=== PATIENT | male | born 1980 | race Caucasian/White ===

== ENCOUNTER 2017-09-17 21:19 | Emergency (ER) | payer MEDICARE, MEDICAID ==
[~2017-09-17] VITALS: Ht 195.6 cm; Wt 135.4 kg
[~2017-09-17 21:19] MED LIST: BECL0.07 INH; BUSP10 PO; CLAR10TA7 PO; COMBAER INH; DUONSOL2 NEB; MOME17I; NEXI20CA PO; ZAFI1TAB2 PO; ZYPR5TAB PO
[2017-09-17 21:26] VITALS: BP 157/88; PULSE 101; RESP 18; TEMP 97.6; O2SAT 99
--- NOTE | 2017-09-17 21:54 | RADRPT ---
EXAM DATE/TIME: 09/17/2017 21:43 [place] COMPARISON: No previous studies available for comparison. INDICATIONS : Chest pain, shortness of breath. MEDICAL HISTORY : None. SURGICAL HISTORY : None. ENCOUNTER: Initial ACUITY: 1 month PAIN SCORE: 3/10 LOCATION: Left chest FINDINGS: PA and lateral views of the chest demonstrate the lungs to be symmetrically aerated without evidence of mass, infiltrate or effusion. The cardiomediastinal contours are unremarkable. Osseous structure s are intact. CONCLUSION: No acute disease. Christiano Cee MD on September 17, 2017 at 21:52 Board Certified Radiologist. This report was verified electronically.
[2017-09-17 22:33] LABS: AUTOMATED NEUTROPHIL # 7.7 TH/MM3 (1.8-7.7); BASOPHIL # 0.1 TH/MM3 (0-0.2); BASOPHIL % 0.5 % (0.0-2.0); EOSINOPHIL # 0.2 TH/MM3 (0-0.4); EOSINOPHIL % 1.3 % (0.0-4.0); HEMATOCRIT 44.8 % (39.0-51.0); LYMPH % 23.5 % (9.0-44.0); LYMPHOCYTE # 2.7 TH/MM3 (1.0-4.8); MEAN CELL VOLUME 84.2 FL (80.0-100.0); MEAN CORPUSCULAR HEMOGLOBIN 28.2 PG (27.0-34.0); MEAN CORPUSCULAR HGB CONC 33.5 % (32.0-36.0); MEAN PLATELET VOLUME 9.3 FL (7.0-11.0); MONO % 8.3 % (0.0-8.0); NEUT % 66.4 % (16.0-70.0); PLATELET COUNT 277 TH/MM3 (150-450); RED BLOOD COUNT 5.32 MIL/MM3 (4.50-5.90); RED CELL DISTRIBUTION WIDTH 14.1 % (11.6-17.2); WHITE BLOOD COUNT 11.5 TH/MM3 (4.0-11.0)
[2017-09-17 22:49] VITALS: BP 144/91; PULSE 88; RESP 18; O2SAT 96
[2017-09-17 22:49] LABS: BICARBONATE 23.9 MEQ/L (21.0-32.0); BLOOD UREA NITROGEN 15 MG/DL (7-18); CALCIUM 9.1 MG/DL (8.5-10.1); CHLORIDE 109 MEQ/L (98-107); CREATININE 1.09 MG/DL (0.60-1.30); GLOMERULAR FILTRATION RATE 77 ML/MIN (>89); GLUCOSE,RANDOM 105 MG/DL (74-106); SODIUM (NA) 144 MEQ/L (136-145)
[2017-09-17 22:53] LABS: TROPONIN I LESS THAN 0.02 NG/ML (0.02-0.05)
[2017-09-17 22:54] LABS: PROTHROMBIN TIME - PATIENT 10.4 SEC (9.8-11.6)
[2017-09-17] MEDS ORDERED: ZAFI1TAB4 (22:57)
[2017-09-17] MEDS ORDERED: ATOR20TA15 PO (22:57)
[2017-09-17] MEDS ORDERED: OLAN5TAB PO (22:57)
[2017-09-17] MEDS ORDERED: ESOM1CAP6 (22:57)
[2017-09-17] MEDS ORDERED: BUSP10TA PO (22:57)
--- NOTE | 2017-09-18 00:16 | PD ---
HPI Chief Complaint: Cardiac Complaint Time Seen by Provider: 00:09 Travel History International Travel<30 days: No Contact w/Intl Traveler<30days: No Traveled to known affect area: No History of Present Illness HPI 37-year-old male presents to the emergency department with a month and a half of intermittent palpitations. Patient reports he has long-standing history of anxiety and has been under enormous stress of late. Patient denies any known prior history of cardiac disease or palpitations. No near syncope or syncope. No chest pain or shortness of breath. Patient has no palpitations today but had palpitations frequently yesterday. Patient has not followed up with his primary care provider. Patient does have history of dyslipidemia. Patient rates current discomfort 0/10 intensity. Patient's had no recent febrile illness. Patient tobacco use occasional substance use alcohol use and denies known history of thyroid dysfunction. Patient states he has no known history of cardiac disease in his family except mother developed cardiac issues after taking Fen/Phen in the 80s reportedly. PFSH Past Medical History Narrative Medical Asthma anxiety; rare substance use; nursing notes reviewed Asthma: Yes Anxiety: Yes Diminished Hearing: No GERD: Yes Influenza Vaccination: No Past Surgical History Other Surgery: Yes (lac repair) Family History Family Myocardial Infarction: Yes (MOM) Social History Alcohol Use: Yes (OCC) Tobacco Use: No (quit 8 yrs ago) Substance Use: Yes (MARIJUANA edibles) Allergies-Medications (Allergen,Severity, Reaction): Coded Allergies: acetaminophen (Unverified Allergy, Severe, 01/15/17) "PASSES OUT" alprazolam (Unverified Allergy, Severe, 01/15/17) PASSES OUT clonazepam (Unverified Allergy, Severe, 01/15/17) PASSES OUT clorazepate dipotassium (Unverified Allergy, Severe, 01/15/17) PASSES OUT codeine (Unverified Allergy, Severe, 01/15/17) PASSES OUT diazepam (Unverified Allergy, Severe, 01/15/17) PASSES OUT hydrocodone (Unverified Allergy, Severe, 01/15/17) "PASSES OUT" lorazepam (Unverified Allergy, Severe, 01/15/17) PASSES OUT midazolam (Unverified Allergy, Severe, 01/15/17) PASSES OUT oxazepam (Unverified Allergy, Severe, 01/15/17) PASSES OUT temazepam (Unverified Allergy, Severe, 01/15/17) PASSES OUT Reported Meds & Prescriptions Reported Meds & Active Scripts Active Reported Nexium 24Hr (Esomeprazole Magnesium) 20 Mg Capsule.dr 40 Mg Olanzapine 5 Mg Tab 5 Mg PO DAILY Buspirone (Buspirone HCl) 10 Mg Tab 10 Mg PO DAILY Zafirlukast 20 Mg Tab 20 Mg BIDAC Atorvastatin (Atorvastatin Calcium) 20 Mg Tab 20 Mg PO HS Review of Systems Except as stated in HPI: all other systems reviewed are Neg Physical Exam Narrative GENERAL: Well-developed well-nourished male no acute distress no respiratory distress SKIN: Warm and dry. HEAD: Normocephalic. EYES: No scleral icterus. No injection or drainage. NECK: Supple, trachea midline. No JVD or lymphadenopathy. CARDIOVASCULAR: Regular rate and rhythm without murmurs, gallops, or rubs. RESPIRATORY: Breath sounds equal bilaterally. No accessory muscle use. GASTROINTESTINAL: Abdomen soft, non-tender, nondistended. MUSCULOSKELETAL: No cyanosis, or edema. BACK: Nontender without obvious deformity. No CVA tenderness. Data Data Last Documented VS Vital Signs Date Time Temp Pulse Resp B/P (MAP) Pulse Ox O2 Delivery O2 Flow Rate FiO2 09/18/17 02:16 09/17/17 22:49 88 18 96 Room Air 09/17/17 21:26 97.6 Orders Orders Electrocardiogram (09/17/17 21:29) Basic Metabolic Panel (Bmp) (09/17/17 21:29) Ckmb (Isoenzyme) Profile (09/17/17 21:29) Complete Blood Count With Diff (09/17/17 21:29) Magnesium (Mg) (09/17/17 21:29) Prothrombin Time / Inr (Pt) (09/17/17 21:29) Act Partial Throm Time (Ptt) (09/17/17 21:29) Troponin I (09/17/17 21:29) Chest, Pa & Lat (09/17/17 21:29) CKMB (09/17/17 21:15) CKMB% (09/17/17 21:15) Thyroid Stimulating Hormone (09/17/17 21:15) Ed Discharge Order (09/18/17 01:11) Labs Laboratory Tests Test 09/17/17 21:15 White Blood Count 11.5 TH/MM3 Red Blood Count 5.32 MIL/MM3 Hemoglobin 15.0 GM/DL Hematocrit 44.8 % Mean Corpuscular Volume 84.2 FL Mean Corpuscular Hemoglobin 28.2 PG Mean Corpuscular Hemoglobin Concent 33.5 % Red Cell Distribution Width 14.1 % Platelet Count 277 TH/MM3 Mean Platelet Volume 9.3 FL Neutrophils (%) (Auto) 66.4 % Lymphocytes (%) (Auto) 23.5 % Monocytes (%) (Auto) 8.3 % Eosinophils (%) (Auto) 1.3 % Basophils (%) (Auto) 0.5 % Neutrophils # (Auto) 7.7 TH/MM3 Lymphocytes # (Auto) 2.7 TH/MM3 Monocytes # (Auto) 1.0 TH/MM3 Eosinophils # (Auto) 0.2 TH/MM3 Basophils # (Auto) 0.1 TH/MM3 CBC Comment DIFF FINAL Differential Comment Prothrombin Time 10.4 SEC Prothromb Time International Ratio 1.0 RATIO Activated Partial Thromboplast Time 26.6 SEC Blood Urea Nitrogen 15 MG/DL Creatinine 1.09 MG/DL Random Glucose 105 MG/DL Calcium Level 9.1 MG/DL Magnesium Level 2.0 MG/DL Sodium Level 144 MEQ/L Potassium Level 3.8 MEQ/L Chloride Level 109 MEQ/L Carbon Dioxide Level 23.9 MEQ/L Anion Gap 11 MEQ/L Estimat Glomerular Filtration Rate 77 ML/MIN Total Creatine Kinase 135 U/L Creatine Kinase MB 2.0 NG/ML Troponin I LESS THAN 0.02 NG/ML Thyroid Stimulating Hormone 3rd Gen 1.610 uIU/ML MDM Medical Decision Making Medical Screen Exam Complete: Yes Emergency Medical Condition: Yes Medical Record Reviewed: Yes Interpretation(s) EKG: Normal sinus rhythm rate [address] elevation or injury pattern or ectopy noted Last Impressions Chest X-Ray 09/17/172128 Signed Impressions: Service Date/Time: Sunday, September 17, 2017 21:43 - CONCLUSION: No acute disease. Christiano Cee MD CBC & BMP Diagram 09/17/17 21:15 Calcium Level 9.1, Magnesium Level 2.0 Vital Signs Date Time Temp Pulse Resp B/P (MAP) Pulse Ox O2 Delivery O2 Flow Rate FiO2 09/17/17 22:49 88 18 144/91 (108) 96 Room Air 09/17/17 22:49 18 96 Room Air 09/17/17 21:26 97.6 101 18 157/88 (111 99 Differential Diagnosis Palpitations, arrhythmia, electrolyte disturbance, ACS, thyroid dysfunction Narrative Course Patient placed on gis analyst IV access obtained specimens collected and sent for resulting EKG sinus rhythm with no acute ST elevation injury pattern or ectopy noted Lab values found to be in normal range; TSH pending Diagnosis Primary Impression: Palpitations Referrals: Primary Care Physician call for appointment Patient Instructions: General Instructions Additional Instructions: Increase fluid hydration Follow-up with your primary care provider Return to the emergency department for any concerns or change in condition Disposition: 01 DISCHARGE HOME Condition: Stable Destiny Rodriguez MD Sep 18, 2017 00:16
--- NOTE | 2017-09-18 22:40 | EKG ---
Date Performed: 09/17/2017 Time Performed: 21:49:41 PTAGE: 37 years EKG: Sinus rhythm NONSPECIFIC T-WAVE ABNORMALITY BORDERLINE ECG PREVIOUS TRACING : 09/25/2012 18.30 Since the previous tracing, no significant change noted DOCTOR: Viraj Calix Interpretating Date/Time 09/18/2017 22:39:54
== END 2017-09-18 02:45 | disposition home or self-care (01) ==
LOC: NEPC 21:19
DX: R00.2 Palpitations (principal); E78.5 Hyperlipidemia, unspecified; K21.9 Gastro-esophageal reflux disease without esophagitis; F41.9 Anxiety disorder, unspecified; F12.90 Cannabis use, unspecified, uncomplicated; Z79.899 Other long term (current) drug therapy
CPT/HCPCS: 71046; 80048; 82550; 82552; 83735; 84443; 84484; 85025; 85610; 85730; 93005; 99285